=== PATIENT | female | born 1990 | race Caucasian/White ===

== ENCOUNTER 2021-12-18 10:41 | Emergency (ER) | payer OTHER ==
[2021-12-18] MEDS ORDERED: LIDOCAINE 1% W/EPI 1:100,000 MDV 50 ML VIAL ONE (11:06)
--- NOTE | 2021-12-18 11:39 | RAD REPORT ---
EXAM DESCRIPTION: RAD - Foot Left 3 View - 12/18/2021 11:25 am CLINICAL HISTORY: Left Foot pain status post injury FINDINGS: No fracture or dislocation is seen. A radiopaque foreign body not seen
--- NOTE | 2021-12-18 11:51 | EDPHYS ---
Physician Documentation [facility] Name: Rosana Canchola Age: 31 yrs Sex: Female : 1990 Arrival Date: 12/18/2021 Time: 10:42 Bed 13 Private MD: ED Physician Amos Hudson HPI: 12/18 11:45 This 31 yrs old Female presents to ER via Ambulatory with complaints of Foot Injury. jmm 11:45 The patient presents with an injury, pain. Onset: The symptoms/episode began/occurred jmm acutely, last night. This is a 31 year old female with no chronic medical conditions that presents to the ED with complaints of pain to her left foot. Patient states stepping on wood which broke. Patient attempted to remove her splinter at home. States the splinter is still embedded in her foot. . 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 - Social history:: Smoking status: Patient reports the use of cigarette tobacco products, smokes one pack cigarettes per day. Patient/guardian denies using alcohol. ROS: 11:47 Constitutional: Negative for fever, chills, and weight loss, Cardiovascular: Negative jmm for chest pain, palpitations, and edema, Respiratory: Negative for shortness of breath, cough, wheezing, and pleuritic chest pain. 11:47 Skin: Negative for injury, rash, and discoloration, Neuro: Negative for headache, weakness, numbness, tingling, and seizure, Psych: Negative for depression, anxiety, suicide ideation, homicidal ideation, and hallucinations, Allergy/Immunology: Negative for hives, rash, and allergies. 11:47 Skin: Positive for pain, fb sensation. 11:47 All other systems are negative. Exam: 11:47 Constitutional: This is a well developed, well nourished patient who is awake, alert, jmm and in no acute distress. Head/Face: atraumatic. Eyes: EOMI, no conjunctival erythema appreciated ENT: Moist Mucus Membranes Neck: Trachea midline, Supple Chest/axilla: Normal chest wall appearance and motion. Cardiovascular: Regular rate and rhythm. No edema appreciated Respiratory: Normal respirations, no respiratory distress appreciated Abdomen/GI: Non distended Back: Normal ROM 11:47 Musculoskeletal/extremity: swelling noted to the ball of the left foot, compartments are soft, NVI. 11:47 Skin: swelling noted to the left ball of the foot. 11:47 Neuro: Orientation: is normal, Mentation: is normal, Memory: is normal. 11:47 Psych: Behavior/mood is pleasant, cooperative. Vital Signs: 10:49 BP 136 / 85; Pulse 85; Resp 18; Temp 98.3(O); Pulse Ox 98% on R/A; Weight 61.23 kg; ld1 Height 5 ft. 4 in. (162.56 cm); Pain 7/10; 10:49 Body Mass Index 23.17 (61.23 kg, 162.56 cm) ld1 Procedures: 11:48 Foreign Body Removal: a wood shaving, from the ball of left foot, by incising to [facility] remove, using lidocaine 1% with epinephrine to anesthesize the area, Dressinx4s were used to dress the wound, The patient tolerated the removal well. MDM: 10:48 Patient medically screened. [facility] 11:49 Data reviewed: vital signs, nurses notes. Counseling: I had a detailed discussion with [facility] the patient and/or guardian regarding: the historical points, exam findings, and any diagnostic results supporting the discharge/admit diagnosis, the need for outpatient follow up, to return to the emergency department if symptoms worsen or persist or if there are any questions or concerns that arise at home. ED course: Patient given wound infection return precautions. Patient understood and agrees with the plan of care. . 12/18 10:51 Order name: Foot Left 3 View XRAY; Complete Time: 11:40 [facility] 12/18 11:42 Order name: Wound Care; Complete Time: 12:03 [facility] Administered Medications: 11:29 Drug: Lidocaine-Epinephrine -1%: (1:100,000) 20 ml Volume: 20 ml; Route: Infiltration; ph 12:15 Follow up: Response: No adverse reaction ph 12:02 Drug: Tetanus-Diphtheria Toxoid Adult 0.5 ml {Instructional Facilitator: [employer]. Exp: ph 09/11/2023. Lot #: [id number]. } Route: IM; Site: right deltoid; 12:15 Follow up: Response: No adverse reaction ph Disposition: 18:52 Co-signature as Attending Physician, Amos Hudson MD I agree with the assessment and belkis plan of care. Disposition Summary: 12/18/21 11:50 Discharge Ordered Location: Home [facility] Condition: Stable jmm Diagnosis - Foreign Body to the Left Foot - Removed jmm Followup: jmm - With: Pasquale Chinchilla DPM - When: 2 - 3 days - Reason: Recheck today's complaints, Continuance of care, Re-evaluation by your physician Discharge Instructions: - Discharge Summary Sheet [facility] - Hand or Foot Foreign Body, Adult [facility] Forms: - Medication Reconciliation Form [facility] - Thank You Letter [facility] - Antibiotic Education [facility] - Prescription Opioid Use [facility] Prescriptions: - Doxycycline Hyclate 100 mg Oral Tablet - take 1 tablet by ORAL route every 12 hours; 20 tablet; Refills: 0, Product [facility] Selection Permitted - Diclofenac Sodium 75 mg Oral Tablet Sustained Release - take 1 tablet by ORAL route 2 times per day; 30 tablet; Refills: 0, Product jm Selection Permitted Signatures: Dispatcher [employer] Amos Scales MD MD cha Mickail, Joel, PA PA Nisreen Jaime, RN RN Jojo Sawant RN RN ld1
--- NOTE | 2021-12-18 11:51 | ER ---
Nurse's Notes [facility] Name: Rosana Canchola Age: 31 yrs Sex: Female : 1990 Arrival Date: 12/18/2021 Time: 10:42 Bed 13 Private MD: Diagnosis: Foreign Body to the Left Foot - Removed Presentation: 12/18 10:49 Chief complaint: Patient states: On vacation - going down stairs. Wooden shard went ld1 into left foot and broke off. Coronavirus screen: At this time, the client does not indicate any symptoms associated with coronavirus-19. Ebola Screen: No symptoms or risks identified at this time. Initial Sepsis Screen: Does the patient meet any 2 criteria? No. Patient's initial sepsis screen is negative. Does the patient have a suspected source of infection? No. Patient's initial sepsis screen is negative. Risk Assessment: Do you want to hurt yourself or someone else? Patient reports no desire to harm self or others. Onset of symptoms was December 18, 2021. 10:49 Method Of Arrival: Ambulatory ld1 10:49 Acuity: TARUN 4 ld1 Triage Assessment: 10:50 General: Appears in no apparent distress. comfortable, Behavior is calm, cooperative, ld1 appropriate for age. Pain: Complains of pain in plantar aspect of left first toe and ball of left foot Pain does not radiate. Pain currently is 7 out of 10 on a pain scale. EENT: No signs and/or symptoms were reported regarding the EENT system. Neuro: Level of Consciousness is awake, alert, obeys commands, Oriented to person, place, time, situation. Cardiovascular: Capillary refill < 3 seconds Patient's skin is warm and dry. Respiratory: Airway is patent Respiratory effort is even, unlabored. GI: Abdomen is flat, non-distended. : No signs and/or symptoms were reported regarding the genitourinary system. Derm: No signs and/or symptoms reported regarding the dermatologic system. Musculoskeletal: No signs and/or symptoms reported regarding the musculoskeletal system. 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 - Social history:: Smoking status: Patient reports the use of cigarette tobacco products, smokes one pack cigarettes per day. Patient/guardian denies using alcohol. Screenin:36 Abuse screen: Denies threats or abuse. Denies injuries from another. Nutritional ph screening: No deficits noted. Tuberculosis screening: No symptoms or risk factors identified. Fall Risk None identified. Assessment: 11:29 General: Appears in no apparent distress. Behavior is calm, cooperative, appropriate ph for age. Pain: Complains of pain in left foot. Neuro: Level of Consciousness is awake, alert, obeys commands, Oriented to person, place, time, situation. Cardiovascular: Capillary refill < 3 seconds in bilateral fingers Patient's skin is warm and dry. Respiratory: Airway is patent Respiratory effort is even, unlabored. Derm: Skin is pink, warm \T\ dry. Vital Signs: 10:49 BP 136 / 85; Pulse 85; Resp 18; Temp 98.3(O); Pulse Ox 98% on R/A; Weight 61.23 kg; ld1 Height 5 ft. 4 in. (162.56 cm); Pain 7/10; 10:49 Body Mass Index 23.17 (61.23 kg, 162.56 cm) ld1 ED Course: 10:42 Patient arrived in ED. mr 10:47 Yonatan Lauren PA is PHCP. jmm 10:47 Amos Hudson MD is Attending Physician. m 10:50 Triage completed. ld1 10:50 Arm band placed on right wrist. ld1 10:54 Nisreen Pena, GRECIA is Primary Nurse. ph 11:26 Foot Left 3 View XRAY In Process Unspecified. EDMS 11:36 Patient has correct armband on for positive identification. Bed in low position. Call ph light in reach. Side rails up X 1. Door closed. Noise minimized. Warm blanket given. 11:50 Pasquale Chinchilla DPM is Referral Physician. jmm 12:03 No provider procedures requiring assistance completed. Patient did not have IV access ph during this emergency room visit. Wound care: to puncture located on ball of left foot was cleaned with Betadine, irrigated with normal saline, dressed with Neosporin, 4X4s, cling. Administered Medications: 11:29 Drug: Lidocaine-Epinephrine -1%: (1:100,000) 20 ml Volume: 20 ml; Route: Infiltration; ph 12:15 Follow up: Response: No adverse reaction ph 12:02 Drug: Tetanus-Diphtheria Toxoid Adult 0.5 ml {Heart Coordinator: [employer]. Exp: ph 09/11/2023. Lot #: [id number]. } Route: IM; Site: right deltoid; 12:15 Follow up: Response: No adverse reaction ph Medication: 12:04 Vaccine Information Statement (VIS) provided today. Questions and/or concerns ph addressed. VIS edition date: December 11, 2020. Outcome: 11:50 Discharge ordered by . samson 12:27 Discharged to home ambulatory. 12:27 Condition: good 12:27 Discharge instructions given to patient, Instructed on discharge instructions, follow up and referral plans. Demonstrated understanding of instructions, follow-up care, Prescriptions given X 2. 12:28 Patient left the ED. ph Signatures: Dispatcher [employer] EDMS Yonatan Lauren PA PA jmm Rivera, Mary mr Smirch, Shelby, RN GRECIA ss Nisreen Pena RN RN ph Jojo Douglass RN RN ld1
[2021-12-18] MEDS ORDERED: TETANUS & DIPHTHERIA TOX,ADULT 0.5 ML VIAL ONE (12:02)
[2021-12-18 13:14] VITALS: BP 136/85; TEMP 98.3; O2SAT 98
== END 2021-12-18 12:28 | disposition home or self-care (01) ==
LOC: ER 10:41
PROC: 0JCR3ZZ Extirpation of Matter from Left Foot Subcutaneous Tissue and Fascia, Percutaneous Approach (ICD-10-PCS; principal; 2021-12-18)
DX: S90.852A Superficial foreign body, left foot, initial encounter (principal); F17.210 Nicotine dependence, cigarettes, uncomplicated; Z23 Encounter for immunization; Z88.5 Allergy status to narcotic agent
CPT/HCPCS: 90471; 90714; 99284